=== PATIENT | female | born 1970 | race Caucasian/White ===

== ENCOUNTER 2017-08-21 11:20 | Observation (INO) | payer OTHER ==
[~2017-08-21] VITALS: Ht 165.1 cm; Wt 60.0 kg
[2017-08-21 11:23] VITALS: BP 147/78; PULSE 78; RESP 22; TEMP 98.2; O2SAT 98
--- NOTE | 2017-08-21 11:55 | PD ---
HPI Chief Complaint: Chest Pain Time Seen by Provider: 11:46 Travel History International Travel<30 days: No Contact w/Intl Traveler<30days: No Traveled to known affect area: No History of Present Illness HPI 46-year-old female with no significant medical history, presents to the emergency department for evaluation of chest pain. Patient states for nights ago she had an episode of vomiting. She thought it may have been because she ate too much or had some alcoholic beverages. This happened again Saturday night. This time when she vomited it was accompanied by severe chest pain that radiated across her chest. It lasted about 15 minutes. Is associated with mild shortness of breath. She states she was at work yesterday and she was having episodes of the squeezing substernal pain with mild shortness of breath. She attributed this to stress at work but the pain is becoming more frequent. It is radiating to her jaw and her arm. She does not have any self cardiac history but has significant familial cardiac history. She denies any other recent illness, fever, or chills. She has no other symptoms to report. [facility] Past Medical History Medical History: Denies Significant Hx ?: Not Social History Alcohol Use: Yes Tobacco Use: No Substance Use: No Allergies-Medications (Allergen,Severity, Reaction): Coded Allergies: tetracycline (Verified Allergy, Mild, yeast infections, 08/21/17) Reported Meds & Prescriptions Reported Meds & Active Scripts Active Reported Wellbutrin SR 12 HR (Bupropion HCl) 100 Mg Tab 100 Mg PO Q12HR Clonazepam 0.5 Mg Tab 0.5 Mg PO BID Review of Systems Except as stated in HPI: all other systems reviewed are Neg Physical Exam Narrative GENERAL: Well-nourished female patient, ambulatory and in no acute distress. SKIN: Focused skin assessment warm/dry. HEAD: Atraumatic. Normocephalic. EYES: Pupils equal and round. No scleral icterus. No injection or drainage. ENT: No nasal bleeding or discharge. Mucous membranes pink and moist. NECK: Trachea midline. No JVD. CARDIOVASCULAR: Regular rate and rhythm. No murmur appreciated. RESPIRATORY: No accessory muscle use. Clear to auscultation. Breath sounds equal bilaterally. GASTROINTESTINAL: Abdomen soft, non-tender, nondistended. Hepatic and splenic margins not palpable. MUSCULOSKELETAL: No obvious deformities. No clubbing. No cyanosis. No edema. NEUROLOGICAL: Awake and alert. No obvious cranial nerve deficits. Motor grossly within normal limits. Normal speech. PSYCHIATRIC: Appropriate mood and affect; insight and judgment normal. Data Data Last Documented VS Vital Signs Date Time Temp Pulse Resp B/P (MAP) Pulse Ox O2 Delivery O2 Flow Rate FiO2 08/21/17 13:02 72 17 138/61 (86) 100 Room Air 08/21/17 11:23 98.2 Orders Orders Electrocardiogram (08/21/17 11:58) Basic Metabolic Panel (Bmp) (08/21/17 11:58) Ckmb (Isoenzyme) Profile (08/21/17 11:58) Complete Blood Count With Diff (08/21/17 11:58) Magnesium (Mg) (08/21/17 11:58) Prothrombin Time / Inr (Pt) (08/21/17 11:58) Act Partial Throm Time (Ptt) (08/21/17 11:58) Troponin I (08/21/17 11:58) Lipase (08/21/17 11:58) Chest, Single Ap (08/21/17 11:58) Ecg Monitoring (08/21/17 11:58) Bilateral Bp Monitoring (08/21/17 11:58) Iv Access Insert/Monitor (08/21/17 11:58) Oximetry (08/21/17 11:58) Oxygen Administration (08/21/17 11:58) Aspirin Chew (Aspirin Chew) (08/21/17 12:00) Sodium Chloride 0.9% Flush (Ns Flush) (08/21/17 12:00) Nitroglycerin Sl (Nitrostat Sl) (08/21/17 12:00) CKMB (08/21/17 12:16) CKMB% (08/21/17 12:16) Admit Order (Ed Use Only) (08/21/17 13:56) Labs Laboratory Tests Test 08/21/17 12:16 White Blood Count 7.7 TH/MM3 Red Blood Count 5.21 MIL/MM3 Hemoglobin 13.4 GM/DL Hematocrit 40.7 % Mean Corpuscular Volume 78.1 FL Mean Corpuscular Hemoglobin 25.7 PG Mean Corpuscular Hemoglobin Concent 32.9 % Red Cell Distribution Width 14.8 % Platelet Count 303 TH/MM3 Mean Platelet Volume 9.0 FL Neutrophils (%) (Auto) 68.3 % Lymphocytes (%) (Auto) 22.3 % Monocytes (%) (Auto) 7.1 % Eosinophils (%) (Auto) 1.3 % Basophils (%) (Auto) 1.0 % Neutrophils # (Auto) 5.3 TH/MM3 Lymphocytes # (Auto) 1.7 TH/MM3 Monocytes # (Auto) 0.5 TH/MM3 Eosinophils # (Auto) 0.1 TH/MM3 Basophils # (Auto) 0.1 TH/MM3 CBC Comment DIFF FINAL Differential Comment Prothrombin Time 10.2 SEC Prothromb Time International Ratio 1.0 RATIO Activated Partial Thromboplast Time 26.5 SEC Blood Urea Nitrogen 11 MG/DL Creatinine 0.73 MG/DL Random Glucose 85 MG/DL Calcium Level 8.7 MG/DL Magnesium Level 2.2 MG/DL Sodium Level 139 MEQ/L Potassium Level 4.4 MEQ/L Chloride Level 107 MEQ/L Carbon Dioxide Level 25.2 MEQ/L Anion Gap 7 MEQ/L Estimat Glomerular Filtration Rate 85 ML/MIN Total Creatine Kinase 147 U/L Creatine Kinase MB 0.6 NG/ML Troponin I LESS THAN 0.02 NG/ML Lipase 155 U/L MDM Medical Decision Making Medical Screen Exam Complete: Yes Emergency Medical Condition: Yes Medical Record Reviewed: Yes Differential Diagnosis ACS versus chest wall pain versus pleuritic pain versus indigestion versus esophageal spasm Narrative Course 46-year-old female presents to emergency department for evaluation. Patient appears anxious but without distress. She is reporting a squeezing substernal chest pain. Her vital signs are stable but she is concerned that her blood pressure is more elevated than usual. Patient was given sublingual nitroglycerin. Upon reassessment she states the chest pain has improved. She also reports an associated headache. Cardiac workup was initiated and reviewed by myself and my attending physician. Laboratory Tests Test 08/21/17 12:16 White Blood Count 7.7 TH/MM3 Red Blood Count 5.21 MIL/MM3 Hemoglobin 13.4 GM/DL Hematocrit 40.7 % Mean Corpuscular Volume 78.1 FL Mean Corpuscular Hemoglobin 25.7 PG Mean Corpuscular Hemoglobin Concent 32.9 % Red Cell Distribution Width 14.8 % Platelet Count 303 TH/MM3 Mean Platelet Volume 9.0 FL Neutrophils (%) (Auto) 68.3 % Lymphocytes (%) (Auto) 22.3 % Monocytes (%) (Auto) 7.1 % Eosinophils (%) (Auto) 1.3 % Basophils (%) (Auto) 1.0 % Neutrophils # (Auto) 5.3 TH/MM3 Lymphocytes # (Auto) 1.7 TH/MM3 Monocytes # (Auto) 0.5 TH/MM3 Eosinophils # (Auto) 0.1 TH/MM3 Basophils # (Auto) 0.1 TH/MM3 CBC Comment DIFF FINAL Differential Comment Prothrombin Time 10.2 SEC Prothromb Time International Ratio 1.0 RATIO Activated Partial Thromboplast Time 26.5 SEC Blood Urea Nitrogen 11 MG/DL Creatinine 0.73 MG/DL Random Glucose 85 MG/DL Calcium Level 8.7 MG/DL Magnesium Level 2.2 MG/DL Sodium Level 139 MEQ/L Potassium Level 4.4 MEQ/L Chloride Level 107 MEQ/L Carbon Dioxide Level 25.2 MEQ/L Anion Gap 7 MEQ/L Estimat Glomerular Filtration Rate 85 ML/MIN Total Creatine Kinase 147 U/L Creatine Kinase MB 0.6 NG/ML Troponin I LESS THAN 0.02 NG/ML Lipase 155 U/L Findings are discussed with the patient. We feel it is in her best interest to be admitted observation to the chest pain center. She is in agreement with this plan of care. Diagnosis Primary Impression: Chest pain Qualified Codes: R07.9 - Chest pain, unspecified Admitting Information Admitting Physician Requests: Observation Condition: Stable WallCristy ward HOLLIE Aug 21, 2017 11:54
[2017-08-21] MEDS ORDERED: SODIUM CHLORIDE 0.9% FLUSH 10 ML FLUSH IVF PRN (12:00)
[2017-08-21] MEDS ORDERED: ASPIRIN 81 MG CHEW TAB PO ONE (12:00)
--- NOTE | 2017-08-21 12:25 | RADRPT ---
EXAM DATE/TIME: 08/21/2017 12:03 [facility] COMPARISON: No previous studies available for comparison. INDICATIONS : Chest pain. MEDICAL HISTORY : None. SURGICAL HISTORY : None. ENCOUNTER: Initial ACUITY: 4 - 6 days PAIN SCORE: 9/10 LOCATION: Bilateral chest FINDINGS: A single view of the chest demonstrates the lungs to be symmetrically aerated without evidence of mas s, infiltrate or effusion. The cardiomediastinal contours are unremarkable. Osseous structures are intact. CONCLUSION: No acute cardiopulmonary process. Gian Quick MD on August 21, 2017 at 12:22 Board Certified Radiologist. This report was verified electronically.
[2017-08-21] MEDS: NITROGLYCERIN 0.4 MG SL 25 TABS/BTL SL SCH ×3 (12:31→13:31)
[2017-08-21] MEDS ORDERED: BUPR100CR PO (12:32)
[2017-08-21] MEDS ORDERED: CLON0.5T PO (12:32)
[2017-08-21 12:49] LABS: PROTHROMBIN TIME - PATIENT 10.2 SEC (9.8-11.6)
[2017-08-21 12:53] LABS: AUTOMATED NEUTROPHIL # 5.3 TH/MM3 (1.8-7.7); BASOPHIL # 0.1 TH/MM3 (0-0.2); EOSINOPHIL # 0.1 TH/MM3 (0-0.4); EOSINOPHIL % 1.3 % (0.0-4.0); HEMATOCRIT 40.7 % (35.0-46.0); HEMOGLOBIN 13.4 GM/DL (11.6-15.3); LYMPH % 22.3 % (9.0-44.0); LYMPHOCYTE # 1.7 TH/MM3 (1.0-4.8); MEAN CELL VOLUME 78.1 FL (80.0-100.0); MEAN CORPUSCULAR HEMOGLOBIN 25.7 PG (27.0-34.0); MEAN CORPUSCULAR HGB CONC 32.9 % (32.0-36.0); MONO % 7.1 % (0.0-8.0); MONOCYTE # 0.5 TH/MM3 (0-0.9); NEUT % 68.3 % (16.0-70.0); PLATELET COUNT 303 TH/MM3 (150-450); RED BLOOD COUNT 5.21 MIL/MM3 (4.00-5.30); RED CELL DISTRIBUTION WIDTH 14.8 % (11.6-17.2); WHITE BLOOD COUNT 7.7 TH/MM3 (4.0-11.0)
[2017-08-21 13:02] VITALS: BP 138/61; PULSE 72; RESP 17; O2SAT 100
[2017-08-21 13:03] LABS: BICARBONATE 25.2 MEQ/L (21.0-32.0); BLOOD UREA NITROGEN 11 MG/DL (7-18); CALCIUM 8.7 MG/DL (8.5-10.1); CHLORIDE 107 MEQ/L (98-107); CREATININE 0.73 MG/DL (0.50-1.00); GLOMERULAR FILTRATION RATE 85 ML/MIN (>89); GLUCOSE,RANDOM 85 MG/DL (74-106); MAGNESIUM 2.2 MG/DL (1.5-2.5); SODIUM (NA) 139 MEQ/L (136-145)
[2017-08-21 13:06] LABS: TROPONIN I LESS THAN 0.02 NG/ML (0.02-0.05)
--- NOTE | 2017-08-21 13:19 | PD ---
Physical Exam Date Seen by Provider: Aug 21, 2017 Narrative Patient presents with a chief complaint of chest pain. Data Data Last Documented VS Vital Signs Date Time Temp Pulse Resp B/P (MAP) Pulse Ox O2 Delivery O2 Flow Rate FiO2 08/21/17 13:02 72 17 138/61 (86) 100 Room Air 08/21/17 11:23 98.2 Orders Orders Electrocardiogram (08/21/17 11:58) Basic Metabolic Panel (Bmp) (08/21/17 11:58) Ckmb (Isoenzyme) Profile (08/21/17 11:58) Complete Blood Count With Diff (08/21/17 11:58) Magnesium (Mg) (08/21/17 11:58) Prothrombin Time / Inr (Pt) (08/21/17 11:58) Act Partial Throm Time (Ptt) (08/21/17 11:58) Troponin I (08/21/17 11:58) Lipase (08/21/17 11:58) Chest, Single Ap (08/21/17 11:58) Ecg Monitoring (08/21/17 11:58) Bilateral Bp Monitoring (08/21/17 11:58) Iv Access Insert/Monitor (08/21/17 11:58) Oximetry (08/21/17 11:58) Oxygen Administration (08/21/17 11:58) Aspirin Chew (Aspirin Chew) (08/21/17 12:00) Sodium Chloride 0.9% Flush (Ns Flush) (08/21/17 12:00) Nitroglycerin Sl (Nitrostat Sl) (08/21/17 12:00) CKMB (08/21/17 12:16) CKMB% (08/21/17 12:16) Labs Laboratory Tests Test 08/21/17 12:16 White Blood Count 7.7 TH/MM3 Red Blood Count 5.21 MIL/MM3 Hemoglobin 13.4 GM/DL Hematocrit 40.7 % Mean Corpuscular Volume 78.1 FL Mean Corpuscular Hemoglobin 25.7 PG Mean Corpuscular Hemoglobin Concent 32.9 % Red Cell Distribution Width 14.8 % Platelet Count 303 TH/MM3 Mean Platelet Volume 9.0 FL Neutrophils (%) (Auto) 68.3 % Lymphocytes (%) (Auto) 22.3 % Monocytes (%) (Auto) 7.1 % Eosinophils (%) (Auto) 1.3 % Basophils (%) (Auto) 1.0 % Neutrophils # (Auto) 5.3 TH/MM3 Lymphocytes # (Auto) 1.7 TH/MM3 Monocytes # (Auto) 0.5 TH/MM3 Eosinophils # (Auto) 0.1 TH/MM3 Basophils # (Auto) 0.1 TH/MM3 CBC Comment DIFF FINAL Differential Comment Prothrombin Time 10.2 SEC Prothromb Time International Ratio 1.0 RATIO Activated Partial Thromboplast Time 26.5 SEC Blood Urea Nitrogen 11 MG/DL Creatinine 0.73 MG/DL Random Glucose 85 MG/DL Calcium Level 8.7 MG/DL Magnesium Level 2.2 MG/DL Sodium Level 139 MEQ/L Potassium Level 4.4 MEQ/L Chloride Level 107 MEQ/L Carbon Dioxide Level 25.2 MEQ/L Anion Gap 7 MEQ/L Estimat Glomerular Filtration Rate 85 ML/MIN Total Creatine Kinase 147 U/L Troponin I LESS THAN 0.02 NG/ML Lipase 155 U/L MDM Supervised Visit with [facility]: Yes Interpretation(s) EKG shows a normal sinus rhythm with no acute ischemic change. Differential Diagnosis Differential diagnosis of chest pain includes but is not limited to musculoskeletal pain, pulmonary embolism, acute coronary syndrome, pneumonia, pleurisy Narrative Course I, Dr. Wells, have reviewed the advance practice practitioner's documentation and am in agreement, met with the patient face to face, made the diagnosis, and the medical decision making was done by me. *My assessment and Findings: Awake and alert and in no acute distress. I have explained to the patient that her initial cardiac exam is negative at that we would like to keep her in the chest pain center for further evaluation. She is currently thinking about that. Please see Cristy Wall NP's note for results of laboratory and radiographic evaluation, ED course, final diagnosis and disposition Shira Wells MD Aug 21, 2017 13:19
[2017-08-21] MEDS ORDERED: ACETAMINOPHEN 500 MG CPLT PO PRN (14:30)
[2017-08-21] MEDS ORDERED: NITROGLYCERIN 0.4 MG SL 25 TABS/BTL SL PRN (14:30)
[2017-08-21] MEDS ORDERED: ONDANSETRON HCL 4 MG/2 ML VIAL IV PUSH PRN (14:30)
[2017-08-21 14:56] VITALS: BP 111/61; PULSE 79; RESP 17; O2SAT 100
--- NOTE | 2017-08-21 15:19 | HHI.HP ---
[facility] Primary Care Physician Dr. Barnett Chief Complaint Chest pain History of Present Illness 46-year-old female with no past significant history and current smoker presents to emergency room for further evaluation of chest pain. Onset Saturday evening. Location substernal. Characterized as a crushing, squeezing pressure. Severe in severity. Duration 15 minutes. Discomfort came on quickly , gradually went away. No associated symptoms of dyspnea or diaphoresis. Endorses vomiting x3 episodes of non-bloody emesis after chest pain episode resolved. Since Saturday evening experiencing intermittent, substernal, crushing, squeezing pressure, without radiation, occurring more frequently than not. Duration varies from seconds to minutes with episodes being mild in severity. No known precipitating or relieving factors. Denies similar chest discomfort in the past. Endorses recently visiting [place] over the weekend and felt discomfort may be ingestion or flu. Denies fever, chills, body aches, history of GERD, burning or sour taste in mouth. Of note, patient experienced chest pain episode during interview, duration of 40 seconds. Review of Systems General: No fatigue,weakness, fever, chills, or recent illness change in appetite. Has been her general health. HEENT: No ZULETA, no vision changes, no nasal congestion or drainage, no dysphasia CV: Continues to have intermittent chest pain as stated above. RESP: No SOB, cough, wheeze, recent URI, history of asthma. Current smoker. GI: No nausea, vomiting, bowel changes, diarrhea, constipation, pain, distention , melena, blood in the stool. No unintentional weight gain or weight loss. : No dysuria, urgency, frequency, history of kidney stones, or frequent UTIs. No longer has menses since uterine ablations few years ago. EXT: No lower leg edema, no paraesthesias MS: No discomfort or change in ROM NEURO: No difficulty with balance, LOC, motor/sensory deficits PSYCH: Recently ordered Wellbutrin and Clonazepam by her PCP, never started taking Wellbutrin and rarely takes Clonazepam. Reports she wanted to take a more natural report and is being seen by a homeopathic physician. Last month started herbal medication name Dopatone, reports tolerating well. Reports past work related stress, however stress has recently improved. SKIN: No rashes, no concerning lesions Past Family Social History Allergies: Coded Allergies: tetracycline (Verified Allergy, Mild, yeast infections, 08/21/17) Past Medical History None Past Surgical History Tubal ligation, breast augmentation, uterine ablation Reported Medications Reported Meds & Active Scripts Active Reported Dopatone herbal supplement, 2 tablets daily (started one month ago) Clonazepam 0.5 Mg Tab 0.5 Mg PO PRN (rarely takes) Active Ordered Medications Current Medications Medications (Trade) Dose Ordered Sig/Duglas Route Start Time Stop Time Status Last Admin (NS Flush) 2 ml UNSCH PRN IVF 08/21/17 12:00 (NS Flush) 2 ml BID IV FLUSH 08/21/17 21:00 (Tylenol) 500 mg Q4H PRN PO 08/21/17 14:30 (Zofran Inj) 4 mg Q6H PRN IV PUSH 08/21/17 14:30 (Nitrostat Sl) 0.4 mg Q5M PRN SL 08/21/17 14:30 (Aspirin) 325 mg DAILY PO 08/22/17 09:00 Family History Noncontributory for early onset cardiovascular disease. Social History No known hypertension, diabetes, or hyperlipidemia. Current smoker 1/4 pack daily. Occasional social alcohol. Denies any illegal drug use. Single mother. Endorses active lifestyle. 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 Past cardiac testing None Physical Exam Vital Signs Vital Signs Date Time Temp Pulse Resp B/P (MAP) Pulse Ox O2 Delivery O2 Flow Rate FiO2 08/21/17 14:45 17 08/21/17 13:02 72 17 138/61 (86) 100 Room Air 08/21/17 11:23 98.2 78 22 147/78 (101) 98 Physical Exam GENERAL: Alert WN, WD, NAD, pleasant, female HEAD: NC, AT EYES: Sclera clear, conjunctiva without injection, pupils equal and round ENT: Mucous membranes pink and moist NECK: Supple, no masses, trachea midline CV: RRR, without murmur, rub, gallop, no JVD, S1-S2 no S3-S4. No carotid bruits RESP: Clear lungs throughout bilateral, no crackles, wheeze, rhonchi, symmetrical chest rise, nonlabored, able to speak in full sentences ABD: Soft, NT, ND, no masses, positive bowel tones EXT: Pulses +24, no dependent edema MS: Normal tone 4 extremities, no obvious deformities, full range of motion NEURO: CN II through CN XII grossly intact, motor strength 5/5 PSYCH: A+O 3, pleasant affect, appropriate speech, mood, insight and judgment SKIN: Normal turgor, normal texture, no lesions, no rashes, brisk cap refill, even hair distribution Laboratory Laboratory Tests Test 08/21/17 12:16 White Blood Count 7.7 Red Blood Count 5.21 Hemoglobin 13.4 Hematocrit 40.7 Mean Corpuscular Volume 78.1 Mean Corpuscular Hemoglobin 25.7 Mean Corpuscular Hemoglobin Concent 32.9 Red Cell Distribution Width 14.8 Platelet Count 303 Mean Platelet Volume 9.0 Neutrophils (%) (Auto) 68.3 Lymphocytes (%) (Auto) 22.3 Monocytes (%) (Auto) 7.1 Eosinophils (%) (Auto) 1.3 Basophils (%) (Auto) 1.0 Neutrophils # (Auto) 5.3 Lymphocytes # (Auto) 1.7 Monocytes # (Auto) 0.5 Eosinophils # (Auto) 0.1 Basophils # (Auto) 0.1 CBC Comment DIFF FINAL Differential Comment Prothrombin Time 10.2 Prothromb Time International Ratio 1.0 Activated Partial Thromboplast Time 26.5 Blood Urea Nitrogen 11 Creatinine 0.73 Random Glucose 85 Calcium Level 8.7 Magnesium Level 2.2 Sodium Level 139 Potassium Level 4.4 Chloride Level 107 Carbon Dioxide Level 25.2 Anion Gap 7 Estimat Glomerular Filtration Rate 85 Total Creatine Kinase 147 Creatine Kinase MB 0.6 Troponin I LESS THAN 0.02 Lipase 155 Result Diagram: 08/21/17 1216 08/21/17 1216 Imaging Last 48 hours Impressions Chest X-Ray 08/21/17 1158 Signed Impressions: Service Date/Time: Monday, August 21, 2017 12:03 - CONCLUSION: No acute cardiopulmonary process. Gian Quick MD Course EKG Normal sinus rhythm, no ST or T-segment changes Caprini VTE Risk Assessment Caprini VTE Risk Assessment: No/Low Risk (score <= 1) Caprini Risk Assessment Model Point Value = 1 Point Value = 2 Point Value = 3 Point Value = 5 Age 41-60 Minor surgery BMI > 25 kg/m2 Swollen legs Varicose veins or History of unexplained or recurrent spontaneous Oral contraceptives or hormone replacement Sepsis (< 1 month) Serious lung disease, including pneumonia (< 1 month) Abnormal pulmonary function Acute myocardial infarction Congestive heart failure (< 1 month) History of inflammatory bowel disease Medical patient at bed rest Age 61-74 Arthroscopic surgery Major open surgery (> 45 min) Laparoscopic surgery (> 45 min) Malignancy Confined to bed (> 72 hours) Immobilizing plaster cast Central venous access Age >= 75 History of VTE Family history of VTE Factor V Leiden Prothrombin [id number] Lupus anticoagulant Anticardiolipin antibodies Elevated serum homocysteine Heparin-induced thrombocytopenia Other congenital or acquired thrombophilia Stroke (< 1 month) Elective arthroplasty Hip, pelvis, or leg fracture Acute spinal cord injury (< 1 month) Prophylaxis Regimen Total Risk Factor Score Risk Level Prophylaxis Regimen 0-1 Low Early ambulation 2 Moderate Order ONE of the following: *Sequential Compression Device (SCD) *Heparin 5000 units SQ BID 3-4 Higher Order ONE of the following medications: *Heparin 5000 units SQ TID *Enoxaparin/Lovenox 40 mg SQ daily (WT < 150 kg, CrCl > 30 mL/min) *Enoxaparin/Lovenox 30 mg SQ daily (WT < 150 kg, CrCl > 10-29 mL/min) *Enoxaparin/Lovenox 30 mg SQ BID (WT < 150 kg, CrCl > 30 mL/min) AND/OR *Sequential Compression Device (SCD) 5 or more Highest Order ONE of the following medications: *Heparin 5000 units SQ TID (Preferred with Epidurals) *Enoxaparin/Lovenox 40 mg SQ daily (WT < 150 kg, CrCl > 30 mL/min) *Enoxaparin/Lovenox 30 mg SQ daily (WT < 150 kg, CrCl > 10-29 mL/min) *Enoxaparin/Lovenox 30 mg SQ BID (WT < 150 kg, CrCl > 30 mL/min) AND *Sequential Compression Device (SCD) Assessment and Plan Assessment and Plan #1 Chest pain-admitted to chest pain center. Being cardiac protocol to include 3 sets of EKGs and cardiac enzymes. Will be seen and evaluated by Dr. Georgi Marrqouin. Discussed likelihood possible exercise stress testing later this evening, this will be decided after wafer abrading machine tender evaluates patient. Patient is agreeable to plan of care. #2 Tobacco use-shortly encouraged and stressed the importance of tobacco cessation. Instructed to quit smoking. #3 History of anxiety-follow up with PCP and keep PCP updated with herbal medications Sofia Douglas Aug 21, 2017 15:18
[2017-08-21 15:59] VITALS: BP 109/72; PULSE 71; RESP 16; TEMP 98.7; O2SAT 99
[2017-08-21 16:20] LABS: TROPONIN I LESS THAN 0.02 NG/ML (0.02-0.05)
[2017-08-21] MEDS ORDERED: KETOROLAC TROMETHAMINE 30 MG/ML (IVP) VIAL IV PUSH ONE (18:15)
[2017-08-21] MEDS ORDERED: PANTOPRAZOLE SOD 20 MG DELAYED RELEASE TAB PO ONE (18:15)
[2017-08-21 20:03] VITALS: PULSE 89
[2017-08-21] MEDS: SODIUM CHLORIDE 0.9% FLUSH 10 ML FLUSH IV FLUSH SCH (21:06)
[2017-08-22 00:01] VITALS: PULSE 80
[2017-08-22 00:11] VITALS: BP 101/55; PULSE 76; RESP 14; TEMP 97.8; O2SAT 98
[2017-08-22 03:40] VITALS: BP 113/52; PULSE 75; RESP 16; TEMP 98; O2SAT 96
--- NOTE | 2017-08-22 07:03 | EKG ---
Date Performed: 08/21/2017 Time Performed: 12:15:08 PTAGE: 46 years EKG: Sinus rhythm WITH SINUS ARRHYTHMIA NORMAL ECG NO PREVIOUS TRACING DOCTOR: Cheri Marti Interpretating Date/Time 08/22/2017 07:02:42
--- NOTE | 2017-08-22 07:04 | EKG ---
Date Performed: 08/21/2017 Time Performed: 14:56:19 PTAGE: 46 years EKG: Sinus rhythm NORMAL ECG Since PREVIOUS TRACING , no significant change noted PREVIOUS TRACIN08/21/2017 12.15 DOCTOR: Cheri Marti Interpretating Date/Time 08/22/2017 07:03:24
--- NOTE | 2017-08-22 07:05 | TR ---
Date Performed: 08/21/2017 Time Performed: 16:24:03 DOCTOR: Cheri Marti DRUG LIST: CLINICAL HISTORY: CHEST PAIN REASON FOR TEST: Chest pain REASON FOR ENDING: OBSERVATION: CONCLUSION: Ed protocol completed. Stopped sec to reaching target heart rate and leg fatigue. Maximum AE=837 Target HR Achieved=86.0% Maximum RI=349/60 Total Exercise Time=8:39. No reprod chest pain. No ectopy. Good exercise tolerance. ST changes are nondiagnostic. Normal bp response. Recovery quick and unremarkable. COMMENTS:
[2017-08-22 07:13] VITALS: BP 93/61; PULSE 80; RESP 19; TEMP 97.8; O2SAT 99
[2017-08-22 08:15] VITALS: O2SAT 95
[2017-08-22] MEDS ORDERED: KETOROLAC TROMETHAMINE 30 MG/ML (IVP) VIAL IV PUSH ONE (08:30)
[2017-08-22] MEDS ORDERED: ASPIRIN 325 MG TAB PO SCH (09:00)
[2017-08-22] MEDS: SODIUM CHLORIDE 0.9% FLUSH 10 ML FLUSH IV FLUSH SCH (09:00)
--- NOTE | 2017-08-22 11:47 | RADRPT ---
EXAM DATE/TIME: 08/22/2017 09:30 [facility] COMPARISON: No previous studies available for comparison. INDICATIONS : Left chest pain radiating across the chest with dyspnea. Angina DOSE: 25.1 mCi Tc99m Myoview at stress 8.8 mCi Tc99m Myoview at rest REST HEART RATE: 93 BPM TARGET HEART RATE: 147 BPM MAX HEART RATE: 152 BPM REST BLOOD PRESSURE: 122/80 mmHg MAX BLOOD PRESSURE: 142/86 mmHg EJECTION FRACTION: 68% MEDICAL HISTORY : None SURGICAL HISTORY : Breast augmentation. ENCOUNTER: Initial ACUITY: 1 day PAIN SCALE: 8/10 LOCATION: chest TECHNIQUE: The patient underwent upright treadmill exercise in the chest pain center. Continuous ECG tracing wa s monitored during stress. Gated SPECT imaging was performed after stress, and conventional SPECT im aging was performed at rest. The examination was performed on a SPECT/CT scanner, both attenuation-c orrected and non-corrected datasets were reviewed. FINDINGS: DISTRIBUTION: The maximum perfused segment at stress is in the lateral and inferolateral diggs. PERFUSION STUDY: The pattern of perfusion at stress is within normal limits. GATED STUDY: There is intact wall motion and thickening without hypokinetic or dyskinetic segments. CONCLUSION: No evidence of fixed or reversible perfusion abnormalities. Normal wall motion and ejection fraction RISK CATEGORY: Low (<1% Annual Mortality Rate) David Pham MD on August 22, 2017 at 11:45 Board Certified Radiologist. This report was verified electronically.
--- NOTE | 2017-08-22 11:49 | HHI.DCPOC ---
Discharge Care Plan Diagnosis: (1) Atypical chest pain Goals to Promote Your Health * To prevent worsening of your condition and complications * To maintain your health at the optimal level Directions to Meet Your Goals Take your medications as prescribed Follow your dietary instruction Follow activity as directed Keep your appointments as scheduled Take your immunizations and boosters as scheduled If your symptoms worsen call your PCP, if no PCP go to Urgent Care Center or Emergency Room Smoking is Dangerous to Your Health. Avoid second hand smoke Call the 24-hour hour crisis hotline for domestic abuse at Sofia Douglas Aug 22, 2017 11:49
--- NOTE | 2017-08-22 11:54 | HHI.DS ---
Discharge Summary Admission Date Aug 21, 2017 at 13:57 Discharge Date: Aug 22, 2017 Admitting Diagnosis chest pain (1) Atypical chest pain Diagnosis: Principal ICD Codes: R07.89 - Other chest pain Status: Acute (2) Tobacco abuse Diagnosis: Principal ICD Codes: Z72.0 - Tobacco use Status: Chronic Procedures Last 48 hours Impressions Chest X-Ray 08/21/17 1158 Signed Impressions: Service Date/Time: Monday, August 21, 2017 12:03 - CONCLUSION: No acute cardiopulmonary process. Gian Quick MD Brief History 46 year old female current smoker presented to ER for further evaluation of 3 days of intermittent chest pain. Admitted to [facility], ruled out with 3 sets of EKG and cardiac enzymes. Complete nuclear treadmill, conclusions unremarkable. CBC/BMP: 08/21/17 1216 08/21/17 1216 Significant Findings Laboratory Tests Test 08/21/17 12:16 08/21/17 15:00 Mean Corpuscular Volume 78.1 FL (80.0-100.0) Mean Corpuscular Hemoglobin 25.7 PG (27.0-34.0) Estimat Glomerular Filtration Rate 85 ML/MIN (>89) Troponin I LESS THAN 0.02 NG/ML LESS THAN 0.02 NG/ML Pt Condition on Discharge: Good Discharge Disposition: Discharge Home Discharge Instructions DIET: Follow Instructions for: Heart Healthy Diet Activities you can perform: Regular-No Restrictions Sofia Douglas Aug 22, 2017 11:54
--- NOTE | 2017-08-23 16:25 | TR ---
Date Performed: 08/22/2017 Time Performed: 10:16:10 DOCTOR: Cheri Marti DRUG LIST: CLINICAL HISTORY: CHEST PAIN REASON FOR TEST: Chest pain REASON FOR ENDING: OBSERVATION: CONCLUSION: Ed protocol completed. Stopped sec to exceeding target heart rate and leg fatigue . Maximum QQ=866 Target HR Achieved=88.0% Maximum HK=312/86 Total Exercise Time=8:13. No reprod chest discomfort. No ectopy. St segments nondiagnostic. Good exercise tolerance. Normal bp response. Recov shae quick and unremarkable. Nuclear images pending. COMMENTS:
== END 2017-08-22 13:02 | disposition home or self-care (01) ==
LOC: NEPE 11:20 → NEDH 13:57 → NEPFCDU 15:29
PROVIDERS: ADMIT Internal Medicine Cardiovascular Disease; ATTEND Internal Medicine Cardiovascular Disease
DX: R07.89 Other chest pain (principal); F41.9 Anxiety disorder, unspecified; I49.9 Cardiac arrhythmia, unspecified; R11.10 Vomiting, unspecified; R06.02 Shortness of breath; R51 Headache; I20.9 Angina pectoris, unspecified; F17.200 Nicotine dependence, unspecified, uncomplicated
CPT/HCPCS: 71045; 78452; 80048; 82550; 82552; 83690; 83735; 84484; 85025; 85610; 85730; 93005; 93017; 96374; 99285; A9502; G0378; J1885